=== PATIENT | female | born 1975 | race Caucasian/White ===

== ENCOUNTER 2016-12-29 17:32 | Observation (INO) | payer BC ==
--- NOTE | ~2016-12-29 | HP ---
History And Physical [place] [id number] [facility] [place]. [address] NAME: ANAHY GONZALEZ : 79 STATUS : DIS Amie PAT#: [id number] AGE: 41 ADM/REG DATE : 12/29/16 MR#: [id number] REPORT SERV DATE: 12/30/16 DICTATED BY: DATE: REPORT STATUS : Draft TRANSCRIBED BY: MODL DATE: 12/30/16 DATE OF ADMISSION: 12/29/2016 SYNTHETIC CHEMIST: Dr. Ramirez in [place]. CHIEF COMPLAINT: Chest pain and chest pressure. HISTORY OF PRESENT ILLNESS: This is a 41-year-old white female with a history of coronary artery disease, status post PCI in 11/2015, who reports having intermittent chest pain and pressure 10/10 that started a couple of weeks ago. She reports the chest pain wakes her up out of sleep and then the pain radiates to her left arm and causes tingling to her fingers, then she becomes diaphoretic. She denies any changes in her symptoms with rest or with exertion. She denies having any nausea, vomiting, palpitations, or shortness of breath. She does report that the chest pain mainly occurs at night. The patient denies any personal history of stroke, DVT, or pulmonary embolus. The patient denies any recent fevers or chills. No palpitations. No syncopal episode. She denies PND or orthopnea. PAST MEDICAL HISTORY: 1. Coronary artery disease, status post PCI in 11/2015 to the proximal LAD. 2. Hyperlipidemia. 3. Last stress test was per patient normal and done four months ago. PAST SURGICAL HISTORY: 1. Tubal ligation. 2. Tonsillectomy. 3. Sycamore tooth removed. 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 She is and has two children. She smoked a pack and half per day x10 years and quit about four months ago. She denies alcohol use. She reports to smoke about three joints of marijuana daily. Denies any other illicit drug use. FAMILY HISTORY: She denies her mother having any cardiac issues. Father, she is unsure of his medical history. She does report that her grandmother in her 40s from an MS. REVIEW OF SYSTEMS: A 14-point review of systems was performed, significant for HPI. No other contributory diagnosis identified. ALLERGIES: 1. CODEINE, REACTION IS HEADACHE. 2. CEPHALEXIN, REACTION IS ITCHING, SWELLING, AND HIVES. HOME MEDICATIONS: Aspirin 81 p.o. daily, Lipitor 40 p.o. daily, Wellbutrin 300 p.o. daily, Coreg 6.25 p.o. twice a day, and Plavix 75 p.o. daily. History And Physical [address] [address] NAME: ANAHY GONZALEZ : 79 STATUS : DIS Amie PAT#: [id number] AGE: 41 ADM/REG DATE : 12/29/16 MR#: [id number] REPORT SERV DATE: 12/30/16 DICTATED BY: DATE: REPORT STATUS : Draft TRANSCRIBED BY: MODL DATE: 12/30/16 PHYSICAL EXAMINATION: VITAL SIGNS: Blood pressure 116/53, heart rate 64, temperature 98.1, respirations 18, and O2 saturation 94% on room air. GENERAL: Cooperative, in no apparent distress. HEENT: Head normocephalic, anicteric. Normal EOM. PERRLA. No xanthelasma. Nares patent. Moist mucous membranes. NECK: Trachea midline. No thyromegaly, JVD or bruits. RESPIRATORY: Clear to auscultation bilaterally anterior and posterior. Respirations even and unlabored. No wheezes, rhonchi or crackles. CARDIOVASCULAR: Regular rate and rhythm. No murmur, rub or gallop appreciated. No chest wall tenderness to palpation. ABDOMEN: Soft, nontender, nondistended, normal bowel sounds auscultated throughout. No masses or organomegaly. EXTREMITIES: No peripheral edema. DP/PT and radial pulses palpable bilaterally. No clubbing or cyanosis. SKIN: Warm, dry and intact. Normal turgor. No pallor or cyanosis. NEURO/PSYCH: Alert, oriented x3 with no acute distress. Affect appropriate to current situation. LABORATORY DATA: Troponin x3 less than 0.02. Sodium 143, potassium 3.9, BUN 10, creatinine 0.92, GFR 91, glucose 95, calcium 8.4, magnesium 2.2. White blood cells 7.8, hemoglobin 12.9, hematocrit 38.4, and platelets 278. INR 1.1. Chest x-ray done on 12/29/2016 shows no acute cardiopulmonary process as radiographically evident. The lung shane are clear. EKG shows sinus rhythm, 64, telemetry shows sinus rhythm. Cardiac diagnostic plus PCI report dated 11/30/2015 shows severe proximal LAD stenosis treated with drug-eluting stent implantation, mildly reduced left ventricular systolic function with anteroapical wall motion abnormality. Recommendation was dual anti-platelet therapy for at least one year as well as smoking cessation and risk factor modification. Stress echo dated 08/19/2016 shows normal stress echocardiogram with no ischemia. Overall, low-risk stress test. ASSESSMENT AND PLAN: 1. Substernal chest pain. The patient's troponins x3 have been less than 0.02. Last stress test done in July shows normal stress echocardiogram with no ischemia, overall low-risk stress test. The patient's cardiac risk factors include hyperlipidemia and coronary artery disease history. The patient has been observed in the CPOU to rule out myocardial infarction with serial enzymes and serial EKGs. Per discussion and analysis, the patient's stress echo done in July and catheterization done in November of last year with Dr. Nye. We will discharge the patient home with dur and make a followup with Dr. Ramirez in about a week or so. The patient is in agreement with this plan. The patient will also be asked to follow up with her PCP in one to two weeks with all the studies being sent to the office. History And Physical [address] [address] NAME: ANAHY GONZALEZ : 79 STATUS : DIS Amie PAT#: [id number] AGE: 41 ADM/REG DATE : 12/29/16 MR#: [id number] REPORT SERV DATE: 12/30/16 DICTATED BY: DATE: REPORT STATUS : Draft TRANSCRIBED BY: MODL DATE: 12/30/16 2. Hyperlipidemia. The patient is on statin. 3. History of coronary artery disease, status post PCI to proximal LAD. The patient will continue her Coreg and Plavix. EKS/MODL Addie Bañuelos APN / [id number] CC: Skye Arriaga, MSN, [employer] H[employer]MER OPERATOR-[employer] [facility]
[2016-12-29 14:26] LABS: BASOPHILS 0.5 %; BASOPHILS ABSOLUTE 0.04 10/3/uL (0.0-0.16); EOSINOPHILS 4.7 %; EOSINOPHILS ABSOLUTE 0.37 10/3/uL (0.0-0.53); HEMATOCRIT 38.4 % (36.0-48.0); HEMOGLOBIN 12.9 g/dL (12.0-16.0); IMMATURE GRANULOCYTES 0.1 %; IMMATURE GRANULOCYTES ABSOLUTE 0.01 10/3/uL (0.0-0.11); LYMPHOCYTES 31.7 %; LYMPHOCYTES ABSOLUTE 2.47 10/3/uL (0.67-4.30); MEAN CORPUS HGB CONC 33.6 g/dL (32.0-36.0); MEAN CORPUSCULAR HEMOGLOB 33.2 pg (26.0-34.0); MEAN PLATELET VOLUME 8.6 fL (9.2-13.0); MONOCYTES 6.9 %; MONOCYTES ABSOLUTE 0.54 10/3/uL (0.21-1.20); NEUTROPHILS 56.1 %; NEUTROPHILS ABSOLUTE 4.37 10/3/uL (2.02-8.40); PLATELET COUNT 278 10/3/uL (150-400); RBC DISTRIBUTION WIDTH 13.7 % (12.0-16.0); RED CELL COUNT 3.88 10/6/uL (4.0-5.6); WHITE BLOOD CELLS 7.8 10/3/uL (4.5-10.5)
[2016-12-29 14:28] LABS: ER CBC TAT 0 Hrs 08 Mins; MANUAL DIFF NO %
[2016-12-29 14:33] LABS: INTERNATIONAL NORMAL RATI 1.1 UNITS (-); PARTIAL THROMBO TIME 27.3 SEC (22.5-37.2)
[2016-12-29 14:42] LABS: BUN (BLOOD UREA NITROGEN) 10 MG/DL (6-23); CALCIUM, SERUM 8.4 MG/DL (8.5-10.4); CHEST PAIN PROFILE TAT 0 Hrs 24 Mins; CHLORIDE, SERUM 111 MMOL/L (96-112); CO2 (CARBON DIOXIDE) 25 MMOL/L (24-34); CREATININE 0.92 MG/DL (0.55-1.02); GFR AFRICAN AMERICAN 91 ML/MIN (>=60); GFR NON AFRICAN AMERICAN 78 ML/MIN (>=60); GLUCOSE, SERUM 95 MG/DL (60-99); POTASSIUM, SERUM 3.9 MMOL/L (3.5-5.3); SODIUM, SERUM 143 MMOL/L (135-148); TROPONIN I <0.02 NG/ML (<0.05)
[~2016-12-29 17:32] MED LIST: ASAB PO; COREG3 PO; COREG6 PO; HALF81 PO; LIPITOR40 PO; PLAVIX PO; PRIN2.5 PO; WELLXL300 PO
[2016-12-30] MEDS ORDERED: IMDUR30 PO (11:45)
== END 2016-12-30 12:22 | disposition home or self-care (01) ==
LOC: ER 17:32 → CDU1 18:06 → CDU2 18:57
PROVIDERS: Physician Assistant
DX: R07.89 Other chest pain (principal); I25.10 Atherosclerotic heart disease of native coronary artery without angina pectoris; E78.5 Hyperlipidemia, unspecified; Z98.51 Tubal ligation status; Z90.89 Acquired absence of other organs; Z87.891 Personal history of nicotine dependence; Z88.5 Allergy status to narcotic agent; Z88.1 Allergy status to other antibiotic agents; Z79.82 Long term (current) use of aspirin; Z79.02 Long term (current) use of antithrombotics/antiplatelets; Z79.899 Other long term (current) drug therapy; Z98.890 Other specified postprocedural states
CPT/HCPCS: 71010; 80048; 83735; 84484; 84703; 85025; 85610; 85730; 93005; 99285; A9270-GY; G0378